=== PATIENT | male | born 1945 | race Caucasian/White ===

== ENCOUNTER → 2020-08-04 | Day surgery (SDC) | payer MEDICARE, BC ==
[~2020-08-04] VITALS: Ht 188 cm; Wt 104.4 kg
[~2020-08-04] MED LIST: AMIO200T61 PO; APIX5TAB3 PO; ASPI-1053 PO; EYE VITAMINS PO; FLO0.4C PO; GLUC-133 PO; LORazepam 0.5 MG tablet PO ONE; LOVA40TA2 PO; METO50TA16 PO; MIDAZolam 1mg/ml 10ml vial IV ONE; MULT-1085 PO; OMEG-79 PO; UBID50TA3 PO; amiodarone 150mg/dext, iso-os 100 ML IV ONE; atropine 0.1mg/ml 10ml syringe IV ONE; diphenhydrAMINE 25mg capsule PO ONE; morphine 10mg/ml inj. IV ONE; normal saline 1000ml 1,000 ML IV SCH
[2020-08-04 08:00] VITALS: BP 167/92
== END | disposition home or self-care (01) ==
LOC: SSTAY O 07:10
PROVIDERS: ATTEND Internal Medicine Cardiovascular Disease
DX: I48.0 Paroxysmal atrial fibrillation (principal); Z53.8 Procedure and treatment not carried out for other reasons; I25.10 Atherosclerotic heart disease of native coronary artery without angina pectoris; I10 Essential (primary) hypertension; E78.49 Other hyperlipidemia; E66.9 Obesity, unspecified; Z68.29 Body mass index [BMI] 29.0-29.9, adult; Z95.5 Presence of coronary angioplasty implant and graft; Z79.01 Long term (current) use of anticoagulants; Z79.899 Other long term (current) drug therapy; Z79.82 Long term (current) use of aspirin; Z87.19 Personal history of other diseases of the digestive system; Z82.49 Family history of ischemic heart disease and other diseases of the circulatory system; Z82.3 Family history of stroke; Z83.6 Family history of other diseases of the respiratory system
CPT/HCPCS: 93005

== ENCOUNTER 2020-11-11 07:28 | Outpatient (CLI) | payer MEDICARE, BC ==
[~2020-11-11 07:28] MED LIST changes: -LORazepam 0.5 MG tablet PO ONE; -MIDAZolam 1mg/ml 10ml vial IV ONE; -amiodarone 150mg/dext, iso-os 100 ML IV ONE; -atropine 0.1mg/ml 10ml syringe IV ONE; -diphenhydrAMINE 25mg capsule PO ONE; -morphine 10mg/ml inj. IV ONE; -normal saline 1000ml 1,000 ML IV SCH
[2020-11-11 07:47] LABS: TOTAL HEMOGLOBIN 15.4 G/dl (14.0-18.0)
== END 2020-11-11 23:59 | disposition home or self-care (01) ==
LOC: RT 07:28
PROVIDERS: ATTEND Internal Medicine Cardiovascular Disease
DX: Z79.899 Other long term (current) drug therapy (principal)
CPT/HCPCS: 71046; 85018; 94010; 94727; 94729

== ENCOUNTER 2024-04-19 14:06 | Outpatient (CLI) | payer MEDICARE, BC ==
[~2024-04-19 14:06] MED LIST changes: +AMI200T PO; -AMIO200T61 PO
[2024-04-19 15:20] VITALS: PULSE 54; RESP 16; O2SAT 96
[2024-04-19] MEDS: albuterol 2.5 MG/3 ML nebule NEB PRN (15:20)
[2024-04-19 15:32] VITALS: PULSE 56; RESP 16
== END 2024-04-19 23:59 | disposition home or self-care (01) ==
LOC: RT 14:06
PROVIDERS: ATTEND Internal Medicine Cardiovascular Disease
DX: R94.2 Abnormal results of pulmonary function studies (principal); Z79.899 Other long term (current) drug therapy
CPT/HCPCS: 85018; 94060; 94727; 94729; 94760; A6258; Z7610